=== PATIENT | male | born 1990 | race African-American/Black ===

== ENCOUNTER 2017-05-12 13:05 | Emergency (ER) | payer MEDICAID ==
[~2017-05-12] VITALS: Ht 182.9 cm; Wt 97.5 kg
--- NOTE | 2017-05-12 13:05 | NUR ---
BIBA FROM WORK PETTY DT WITNESSSED SEIZURE. PATIENT RECEIVED AAO4. APPEARS IN NO APPARENT DISTRESS. RESPIRATION EVEN AND UNLABORED.SKIN IS WARM TO TOUCH AND NON DIAPHORETIC. AFEBRILE. VSS.SEIZURE PRECAUTION OBSERVED
[2017-05-12] MEDS ORDERED: LEVETIRACETAM (500MG) 500 MG in IV NS 0.9% 100 ML IV SCH (13:30)
--- NOTE | 2017-05-12 13:42 | NUR ---
PATIENT STILL IN CT
--- NOTE | 2017-05-12 15:37 | NUR ---
IV removed. Catheter intact and site benign. Pressure and 4x4 applied to site. No bleeding noted. Patient discharged to home in stable condition. Written and verbal after care instructions given. Patient verbalizes understanding of instruction.
[2017-05-12 15:38] VITALS: BP 119/74
== END 2017-05-12 15:39 | disposition home or self-care (01) ==
LOC: EDBD 13:08 → ER 13:08
DX: G40.909 Epilepsy, unspecified, not intractable, without status epilepticus (principal)
CPT/HCPCS: 36415; 70450; 82542; 96365; 99285; J1953; J7030

== ENCOUNTER 2017-06-12 15:03 | Emergency (ER) | payer MEDICAID, OTHER ==
[~2017-06-12] VITALS: Ht 182.9 cm; Wt 99.8 kg
--- NOTE | 2017-06-12 15:03 | NUR ---
BBRA FROM WORK C/O SEIZURE EPISODE AT WORK. NAD NOTED. PT CURRENTLY POSTICHTAL, VSS. MD AT BEDSIDE FOR EVAL.
[2017-06-12 15:28] LABS: BASOPHILS % (AUTO) 0.6 % (0.0-2.0); EOSINOPHILS # (AUTO) 0.1 /CMM (0.0-0.7); EOSINOPHILS % (AUTO) 1.1 % (0.0-6.0); HEMATOCRIT 45 % (39-51); HEMOGLOBIN 14.7 g/dL (13.5-17.5); LYMPHOCYTES # (AUTO) 2.1 /CMM (0.8-4.8); LYMPHOCYTES % (AUTO) 26.1 % (20.0-44.0); MEAN CORPUSCULAR HEMOGLOBIN 26 PG (26.0-33.0); MEAN CORPUSCULAR HGB CONC 33 g/dl (31.0-36.0); MEAN CORPUSCULAR VOLUME 78 fL (80-96); MONOCYTES # (AUTO) 0.4 /CMM (0.1-1.30); MONOCYTES % (AUTO) 4.6 % (2.0-12.0); NEUTROPHILS # (AUTO) 5.5 /CMM (1.8-8.9); NEUTROPHILS % (AUTO) 67.6 % (43.0-81.0); PLATELET COUNT (AUTO) 215 /CMM (150-450); RDW COEFFICIENT OF VARIATION 16.1 (11.5-15.0); RED BLOOD CELL COUNT(AUTO) 5.72 MIL/uL (4.5-6.0); WHITE BLOOD COUNT (AUTO) 8.1 K/uL (4.3-11.0)
[2017-06-12] MEDS ORDERED: LEVETIRACETAM (500MG) 1,000 MG in IV NS 0.9% 100 ML IV SCH (15:30)
[2017-06-12 15:37] LABS: CALCIUM, SERUM 9.1 mg/dL (8.5-10.1); CREATININE 1.3 mg/dL (0.6-1.3); POTASSIUM 3.6 mmol/L (3.5-5.1)
[2017-06-12 16:47] VITALS: BP 127/64
--- NOTE | 2017-06-12 16:49 | NUR ---
IV removed. Catheter intact and site benign. Pressure and 4x4 applied to site. No bleeding noted. Patient discharged to home in stable condition. Written and verbal after care instructions given. Patient verbalizes understanding of instruction. ambulatory wiht steady gait. no further complaints.
== END 2017-06-12 16:48 | disposition home or self-care (01) ==
LOC: ER 15:04
DX: G40.909 Epilepsy, unspecified, not intractable, without status epilepticus (principal)
CPT/HCPCS: 36415; 80048; 85025; 93005; 96365; 99285; A4606; G0480; J1953; J7030; Z7610